=== PATIENT | female | born 1985 | race Caucasian/White ===

== ENCOUNTER 2017-01-26 00:33 | Emergency (ER) | payer OTHER ==
[~2017-01-26] VITALS: Ht 170.2 cm; Wt 90.9 kg
--- NOTE | 2017-01-26 00:44 | PD ---
HPI Chief Complaint: ELBOW INJ Time Seen by Provider: 00:44 Travel History International Travel<30 days: No Contact w/Intl Traveler<30days: No Traveled to known affect area: No History of Present Illness HPI 31-year-old female with no significant medical history presents to the emergency department by [facility] for evaluation of left elbow injury. Patient was working when she tripped over a crate, landing directly on the left elbow. Patient reports 10 and 10 pain of the left elbow. She states she cannot move the distal extremity without severe pain. Denies any alterations in sensation. Patient has no other symptoms to report time. PFSH Past Medical History Medical History: Denies Significant Hx Social History Alcohol Use: No Tobacco Use: No Substance Use: No Allergies-Medications (Allergen,Severity, Reaction): Coded Allergies: No Known Allergies (Unverified , 01/26/17) Reported Meds & Prescriptions Reported Meds & Active Scripts Active Ibuprofen 800 Mg Tab 800 Mg PO Q8H PRN Percocet (Oxycodone-Acetaminophen) 5-325 mg Tab 1 Tab PO Q6H PRN Review of Systems Except as stated in HPI: all other systems reviewed are Neg Physical Exam Narrative GENERAL: Well-nourished female patient crying, in moderate distress secondary to pain SKIN: Focused skin assessment warm/dry. Intact HEAD: Atraumatic. Normocephalic. EYES: Pupils equal and round. No scleral icterus. No injection or drainage. ENT: No nasal bleeding or discharge. Mucous membranes pink and moist. NECK: Trachea midline. No JVD. CARDIOVASCULAR: Regular rate and rhythm. No murmur appreciated. RESPIRATORY: No accessory muscle use. Clear to auscultation. Breath sounds equal bilaterally. GASTROINTESTINAL: Abdomen soft, non-tender, nondistended. Hepatic and splenic margins not palpable. MUSCULOSKELETAL: No obvious deformities. No clubbing. No cyanosis. Swelling over the posterior medial aspect of the left elbow. Patient is holding the elbow flexed and across her body. Distal pulses are palpable. Cap refill is within normal limits. Compartments are soft. Patient can extend to 30 otherwise range of motion is limited. NEUROLOGICAL: Awake and alert. No obvious cranial nerve deficits. Motor grossly within normal limits. Normal speech. PSYCHIATRIC: Appropriate mood and affect; insight and judgment normal. Data Data Last Documented VS Vital Signs Date Time Temp Pulse Resp B/P Pulse Ox O2 Delivery O2 Flow Rate FiO2 01/26/17 01:03 17 01/26/17 00:47 98.6 109 122/89 98 Orders Iv Access Insert/Monitor (01/26/17 00:42) Elbow, Complete (4 Vws) (01/26/17 ) Complete Blood Count With Diff (01/26/17 00:42) Basic Metabolic Panel (Bmp) (01/26/17 00:42) Coag Profile (01/26/17 00:42) Ondansetron Inj (Zofran Inj) (01/26/17 01:00) Morphine Inj (Morphine Inj) (01/26/17 01:00) Hydromorphone Pf Inj (Dilaudid Pf Inj) (01/26/17 02:00) Splint Or Brace Apply/Monitor (01/26/17 02:36) Splint Or Brace Apply/Monitor (01/26/17 02:36) Ketorolac Inj (Toradol Inj) (01/26/17 02:45) Labs Laboratory Tests Test 01/26/17 01:15 White Blood Count 10.7 TH/MM3 Red Blood Count 4.70 MIL/MM3 Hemoglobin 14.4 GM/DL Hematocrit 43.0 % Mean Corpuscular Volume 91.5 FL Mean Corpuscular Hemoglobin 30.6 PG Mean Corpuscular Hemoglobin 33.4 % Concent Red Cell Distribution Width 12.9 % Platelet Count 226 TH/MM3 Mean Platelet Volume 8.8 FL Neutrophils (%) (Auto) 38.3 % Lymphocytes (%) (Auto) 49.0 % Monocytes (%) (Auto) 8.6 % Eosinophils (%) (Auto) 2.9 % Basophils (%) (Auto) 1.2 % Neutrophils # (Auto) 4.1 TH/MM3 Lymphocytes # (Auto) 5.2 TH/MM3 Monocytes # (Auto) 0.9 TH/MM3 Eosinophils # (Auto) 0.3 TH/MM3 Basophils # (Auto) 0.1 TH/MM3 CBC Comment AUTO DIFF Differential Total Cells 100 Counted Neutrophils % (Manual) 35 % Band Neutrophils % 1 % Lymphocytes % 55 % Monocytes % 4 % Eosinophils % 3 % Basophils % 2 % Neutrophils # (Manual) 3.9 TH/MM3 Differential Comment FINAL DIFF MANUAL Platelet Estimate NORMAL Platelet Morphology Comment NORMAL Red Cell Morphology Comment NORMAL Prothrombin Time 10.2 SEC Prothromb Time International 0.9 RATIO Ratio Activated Partial 27.3 SEC Thromboplast Time Sodium Level 141 MEQ/L Potassium Level 3.6 MEQ/L Chloride Level 104 MEQ/L Carbon Dioxide Level 28.7 MEQ/L Anion Gap 8 MEQ/L Blood Urea Nitrogen 11 MG/DL Creatinine 0.81 MG/DL Estimat Glomerular Filtration 82 ML/MIN Rate Random Glucose 90 MG/DL Calcium Level 8.9 MG/DL [facility] Medical Decision Making Medical Screen Exam Complete: Yes Emergency Medical Condition: Yes Medical Record Reviewed: Yes Differential Diagnosis Fracture versus sprain versus contusion versus dislocation Narrative Course 31-year-old female presents to emergency department for evaluation left elbow injury. Patient is in quite significant distress secondary to pain. IV access is obtained and she is given IV morphine and Zofran. Her pain persisted and my attending did give her Dilaudid as well I X-ray imaging shows a nondisplaced capitellum fracture I discussed the patient my attending physician. The extremity is neurovascularly intact. This is a nondisplaced fairly small fracture. Patient obese placed in a splint, encouraged to follow with research computing specialist. She agrees to return immediately with any acute worsening symptoms. Diagnosis Primary Impression: Closed fracture of capitellum of left humerus Qualified Code: S42.452A - Closed fracture of capitellum of left humerus, initial encounter Referrals: Black Ulrich MD Orthopaedic Surgeon Primary Care Physician Patient Instructions: Elbow Fracture in Adults (DC), General Instructions Additional Instructions: Do not remove your splint Do not get it wet Elevate and ice to reduce pain and swelling Follow up with research computing specialist- call Friday for an appt. Return to ED with acute worsening of symptoms Med/Other Pt SpecificInfo: Prescription(s) given Scripts Ibuprofen 800 Mg Nym713 Mg PO Q8H PRN (Pain/Inflammation) #30 TAB Ref 0 Prov:Corey Tariq MD 01/26/17 Oxycodone-Acetaminophen (Percocet)5-325 mg Tab1 Tab PO Q6H PRN (PAIN GREATER THAN 5) #20 TAB Ref 0 Prov:Corey Tariq MD 01/26/17 Disposition: 01 DISCHARGE HOME Condition: Stable Paris Beltran January 26, 2017 00:44
[2017-01-26 00:47] VITALS: BP 122/89; PULSE 109; RESP 20; TEMP 98.6; O2SAT 98
[2017-01-26] MEDS ORDERED: ONDANSETRON HCL 4 MG/2 ML VIAL IV PUSH ONE (01:00)
[2017-01-26] MEDS ORDERED: MORPHINE SULFATE 4 MG/ML INJ IV PUSH ONE (01:00)
[2017-01-26 01:03] VITALS: RESP 17
[2017-01-26 01:34] LABS: AUTOMATED NEUTROPHIL # 4.1 TH/MM3 (1.8-7.7); BASOPHIL # 0.1 TH/MM3 (0-0.2); BASOPHIL % 1.2 % (0.0-2.0); EOSINOPHIL # 0.3 TH/MM3 (0-0.4); EOSINOPHIL % 2.9 % (0.0-4.0); LYMPHOCYTE # 5.2 TH/MM3 (1.0-4.8); MEAN CELL VOLUME 91.5 FL (80.0-100.0); MEAN CORPUSCULAR HEMOGLOBIN 30.6 PG (27.0-34.0); MEAN CORPUSCULAR HGB CONC 33.4 % (32.0-36.0); MONO % 8.6 % (0.0-8.0); NEUT % 38.3 % (16.0-70.0); PLATELET COUNT 226 TH/MM3 (150-450); RED CELL DISTRIBUTION WIDTH 12.9 % (11.6-17.2); WHITE BLOOD COUNT 10.7 TH/MM3 (4.0-11.0)
[2017-01-26 01:39] LABS: HEMO FLAGS AUTO DIFF
[2017-01-26 01:41] LABS: BICARBONATE 28.7 MEQ/L (21.0-32.0); POTASSIUM 3.6 MEQ/L (3.5-5.1)
[2017-01-26 01:47] LABS: APTT (PATIENT) 27.3 SEC (24.3-30.1); INTERNATIONAL NORMALIZED RATIO 0.9 RATIO; PROTHROMBIN TIME - PATIENT 10.2 SEC (9.8-11.6)
[2017-01-26] MEDS ORDERED: HYDROmorphone HCL PF 1 MG/ML VIAL IV PUSH ONE (02:00)
--- NOTE | 2017-01-26 02:06 | RADRPT ---
EXAM DATE/TIME: 01/26/2017 01:02 [facility] COMPARISON: No previous studies available for comparison. INDICATIONS : Left elbow pain from a possible fall. MEDICAL HISTORY : None. SURGICAL HISTORY : None. ENCOUNTER: Initial ACUITY: 1 day PAIN SCORE: 10/10 LOCATION: Left elbow FINDINGS: There is a relatively nondisplaced fracture through the capitellum on the distal left humerus. No dis location. No other fractures are seen. No significant joint effusion identified. There is a subcutane ous linear radiopaque density in the distal left arm. CONCLUSION: 1. Nondisplaced fracture of the capitellum. No dislocation. Sunil Martin MD on January 26, 2017 at 2:02 Board Certified Radiologist. This report was verified electronically.
[2017-01-26] MEDS ORDERED: IBUP800T23 PO (02:40)
[2017-01-26] MEDS ORDERED: PERC5TAB12 PO (02:40)
[2017-01-26] MEDS ORDERED: KETOROLAC TROMETHAMINE 30 MG/ML (IVP) VIAL IV PUSH ONE (02:45)
[2017-01-26 03:12] LABS: BANDS 1 % (0-6); BASOPHILS 2 % (0-2); EOSINOPHILS 3 % (0-4); NEUTROPHIL # MANUAL DIFF 3.9 TH/MM3 (1.8-7.7); PLATELET ESTIMATE SMEAR NORMAL (NORMAL); PLATELET MORPHOLOGY NORMAL (NORMAL); POLYS (SEG NEUTROPHILS) 35 % (16-70); SCAN/DIFF FINAL DIFF MANUAL; WBC DIFF SAMPLE 100
== END 2017-01-26 04:02 | disposition home or self-care (01) ==
LOC: NEPE 00:33
DX: S42.495A Other nondisplaced fracture of lower end of left humerus, initial encounter for closed fracture (principal); W01.198A Fall on same level from slipping, tripping and stumbling with subsequent striking against other object, initial encounter; Y93.89 Activity, other specified; Y92.89 Other specified places as the place of occurrence of the external cause; Y99.0 Civilian activity done for income or pay
CPT/HCPCS: 29105; 73080; 80048; 85007; 85027; 85610; 85730; 96374; 96375; 99283; J1170; J1885; J2270; J2405